=== PATIENT | female | born 1970 | race Caucasian/White ===

== ENCOUNTER → 2021-01-30 | Outpatient (CLI) | payer BC ==
[~2021-01-30] MED LIST: CALCAVITD PO; CEPH500; CITA20 PO; CYCL10 PO; DULO60 PO; EFFEXOR; ESOM20; ESOM20 PO; HYDACE10B PO; HYDACE25S PR; HYDACE5 PO; HYDCOR2.5A PR; LEVOXYL; LEVSOD100; LEVSOD100 PO; META800 PO; NAPR500 PO; NAPR550 PO; Norco 5-325 Ta1 EACH PO; PRAHYD1AE TOP; Percocet 5-3251 EACH PO; TRAM50 PO; VENL75; VITAMINS
[2021-01-30 12:23] LABS: BASOPHILS ABSOLUTE AUTO 0.02 K/mm3 (0.00-0.23); BASOPHILS PERCENT AUTO 0 % (0-2); EOSINOPHILS ABSOLUTE AUTO 0.05 K/mm3 (0.00-0.68); EOSINOPHILS PERCENT AUTO 1 % (0-6); Hematocrit 33.9 % (33.0-51.0); Hemoglobin 11.7 g/dL (11.5-16.0); IMMATURE GRAN ABSOLUTE AUTO 0.03 K/mm3 (0.00-0.10); IMMATURE GRAN PERCENT AUTO 0 % (0-1); LYMPHOCYTES ABSOLUTE AUTO 1.44 K/mm3 (0.84-5.20); LYMPHOCYTES PERCENT AUTO 16 % (21-46); MONOCYTES ABSOLUTE AUTO 1.06 K/mm3 (0.16-1.47); MONOCYTES PERCENT AUTO 12 % (4-13); Mean Corpuscular HGB 33.2 pg (26.0-34.0); Mean Corpuscular HGB Conc 34.5 g/dL (31.5-36.5); Mean Corpuscular Volume 96 fL (80-100); Mean Platelet Volume 10.6 fL (9.1-12.4); NEUTROPHILS ABSOLUTE AUTO 6.45 K/mm3 (1.96-9.15); NEUTROPHILS PERCENT AUTO 71 % (41-73); Platelet Count 149 K/mm3 (150-400); RDW Coefficient Variation 16.1 % (11.7-14.2); RDW Standard Deviation 56.4 fL (35.1-46.3); Red Blood Cell Count 3.52 M/mm3 (3.80-5.20); White Blood Cell Count 9.05 K/mm3 (4.00-11.30)
[2021-01-30 12:31] LABS: Alanine Aminotransfer (ALT/SGP 45 U/L (12-78); Albumin, Blood 2.4 g/dL (3.4-5.0); Albumin/Globulin Ratio 0.5 (0.8-1.8); Alk Phos 168 U/L (40-126); Anion Gap 5 mmol/L (6-16); Aspartate Aminotrans (AST/SGOT 132 U/L (12-37); Blood Urea Nitrogen 4 mg/dL (8-24); Bun/Creatinine Ratio 6.8 (12.0-20.0); CO2, Blood 34 mmol/L (21-32); Calcium, Blood 8.2 mg/dL (8.5-10.1); Chloride, Blood 97 mmol/L (98-108); Creatinine, Blood 0.59 mg/dL (0.40-1.00); Globulin, Blood 4.4 g/dL (2.2-4.0); Glomerular Filtration Rate >60 (60-); Glucose, Blood 95 mg/dL (70-99); Sodium, Blood 136 mmol/L (136-145); Total Protein, Blood 6.8 g/dL (6.4-8.2)
[2021-01-30 12:35] LABS: Potassium, Blood 2.4 mmol/L (3.5-5.5)
== END | disposition home or self-care (01) ==
LOC: LAB SHORT 12:14
PROVIDERS: Physician Assistant
DX: R10.9 Unspecified abdominal pain (principal); R34 Anuria and oliguria
CPT/HCPCS: 80053; 83690; 85025; 87077; 87086; 87186

== ENCOUNTER → 2021-02-07 | Outpatient (CLI) | payer BC ==
[2021-02-09 12:05] LABS: Microalbumin, Urine Quant. <5.000 mg/L (0.000-20.000)
== END ==
LOC: LAB 07:00 → LAB SHORT 07:00
PROVIDERS: Internal Medicine Nephrology
DX: N18.2 Chronic kidney disease, stage 2 (mild) (principal); D63.1 Anemia in chronic kidney disease; N25.81 Secondary hyperparathyroidism of renal origin; E55.9 Vitamin D deficiency, unspecified; E78.00 Pure hypercholesterolemia, unspecified; R76.9 Abnormal immunological finding in serum, unspecified; R94.5 Abnormal results of liver function studies; R94.6 Abnormal results of thyroid function studies; D51.8 Other vitamin B12 deficiency anemias; D52.8 Other folate deficiency anemias; D50.9 Iron deficiency anemia, unspecified
CPT/HCPCS: 81050; 82043; 82570; 84156

== ENCOUNTER → 2021-02-10 | Outpatient (CLI) | payer BC ==
[2021-02-10 10:40] LABS: BASOPHILS ABSOLUTE AUTO 0.04 K/mm3 (0.00-0.23); BASOPHILS PERCENT AUTO 0 % (0-2); EOSINOPHILS PERCENT AUTO 1 % (0-6); Hematocrit 33.6 % (33.0-51.0); Hemoglobin 11.5 g/dL (11.5-16.0); IMMATURE GRAN ABSOLUTE AUTO 0.05 K/mm3 (0.00-0.10); IMMATURE GRAN PERCENT AUTO 0 % (0-1); LYMPHOCYTES ABSOLUTE AUTO 1.37 K/mm3 (0.84-5.20); LYMPHOCYTES PERCENT AUTO 12 % (21-46); MONOCYTES PERCENT AUTO 9 % (4-13); Mean Corpuscular HGB 33.6 pg (26.0-34.0); Mean Corpuscular HGB Conc 34.2 g/dL (31.5-36.5); Mean Corpuscular Volume 98 fL (80-100); Mean Platelet Volume 10.3 fL (9.1-12.4); NEUTROPHILS ABSOLUTE AUTO 9.08 K/mm3 (1.96-9.15); NEUTROPHILS PERCENT AUTO 77 % (41-73); Platelet Count 151 K/mm3 (150-400); RDW Coefficient Variation 17.1 % (11.7-14.2); Red Blood Cell Count 3.42 M/mm3 (3.80-5.20); White Blood Cell Count 11.74 K/mm3 (4.00-11.30)
[2021-02-10 11:13] LABS: Alanine Aminotransfer (ALT/SGP 46 U/L (12-78); Albumin/Globulin Ratio 0.4 (0.8-1.8); Alk Phos 169 U/L (50-136); Anion Gap 5 mmol/L (6-16); Aspartate Aminotrans (AST/SGOT 169 U/L (12-37); Bilirubin, Direct 1.2 mg/dL (0.0-0.3); Bilirubin, Indirect 0.7 mg/dL (0.1-0.7); Bilirubin, Total 1.9 mg/dL (0.1-1.0); Blood Urea Nitrogen 2 mg/dL (8-24); Bun/Creatinine Ratio 4.9 (12.0-20.0); CO2, Blood 32 mmol/L (21-32); Calcium, Blood 8.2 mg/dL (8.5-10.1); Chloride, Blood 100 mmol/L (98-108); Creatinine, Blood 0.41 mg/dL (0.40-1.00); Globulin, Blood 4.5 g/dL (2.2-4.0); Glomerular Filtration Rate >60 (60-); Glucose, Blood 82 mg/dL (70-99); Magnesium, Blood 1.5 mg/dL (1.6-2.4); Phosphorus, Blood 2.3 mg/dL (2.5-4.9); Potassium, Blood 2.8 mmol/L (3.5-5.5); Sodium, Blood 137 mmol/L (136-145); Total Protein, Blood 6.5 g/dL (6.4-8.2)
[2021-02-11 08:11] LABS: HCV ANTIBODY 0.1 (0.0-0.9); HEP B SURFACE AB Non Reactive (.)
== END ==
LOC: LAB SHORT 10:02 → LAB FUT 02-04 09:15
PROVIDERS: Internal Medicine Nephrology
DX: E11.22 Type 2 diabetes mellitus with diabetic chronic kidney disease (principal); E11.21 Type 2 diabetes mellitus with diabetic nephropathy; N18.2 Chronic kidney disease, stage 2 (mild); D63.1 Anemia in chronic kidney disease; N25.81 Secondary hyperparathyroidism of renal origin; E55.9 Vitamin D deficiency, unspecified; R76.9 Abnormal immunological finding in serum, unspecified; R94.5 Abnormal results of liver function studies; G60.9 Hereditary and idiopathic neuropathy, unspecified
CPT/HCPCS: 36415; 80053; 82248; 83735; 84100; 85025; 86803

== ENCOUNTER 2021-05-08 23:36 | Observation (INO) | payer BC ==
[~2021-05-08] VITALS: Ht 157.5 cm; Wt 80.7 kg
[2021-05-09 00:31] LABS: BASOPHILS ABSOLUTE AUTO 0.03 K/mm3 (0.00-0.23); BASOPHILS PERCENT AUTO 0 % (0-2); EOSINOPHILS ABSOLUTE AUTO 0.08 K/mm3 (0.00-0.68); EOSINOPHILS PERCENT AUTO 1 % (0-6); Hemoglobin 9.2 g/dL (11.5-16.0); IMMATURE GRAN ABSOLUTE AUTO 0.04 K/mm3 (0.00-0.10); IMMATURE GRAN PERCENT AUTO 1 % (0-1); LYMPHOCYTES ABSOLUTE AUTO 0.72 K/mm3 (0.84-5.20); LYMPHOCYTES PERCENT AUTO 9 % (21-46); MONOCYTES ABSOLUTE AUTO 0.98 K/mm3 (0.16-1.47); MONOCYTES PERCENT AUTO 13 % (4-13); Mean Corpuscular HGB 31.7 pg (26.0-34.0); Mean Corpuscular HGB Conc 34.1 g/dL (31.5-36.5); Mean Corpuscular Volume 93 fL (80-100); Mean Platelet Volume 9.3 fL (9.1-12.4); NEUTROPHILS ABSOLUTE AUTO 5.91 K/mm3 (1.96-9.15); NEUTROPHILS PERCENT AUTO 76 % (41-73); Platelet Count 148 K/mm3 (150-400); RDW Coefficient Variation 20.1 % (11.7-14.2); RDW Standard Deviation 65.3 fL (35.1-46.3); White Blood Cell Count 7.76 K/mm3 (4.00-11.30)
[2021-05-09 00:48] LABS: Alanine Aminotransfer (ALT/SGP 39 U/L (12-78); Albumin, Blood 2.2 g/dL (3.4-5.0); Albumin/Globulin Ratio 0.5 (0.8-1.8); Alk Phos 125 U/L (50-136); Anion Gap 5 mmol/L (6-16); Aspartate Aminotrans (AST/SGOT 79 U/L (12-37); Bilirubin, Direct 1.2 mg/dL (0.0-0.3); Bilirubin, Total 2.6 mg/dL (0.1-1.0); Blood Urea Nitrogen 2 mg/dL (8-24); Bun/Creatinine Ratio 3.3 (12.0-20.0); CO2, Blood 22 mmol/L (21-32); Calcium, Blood 8.5 mg/dL (8.5-10.1); Chloride, Blood 125 mmol/L (98-108); Creatinine, Blood 0.61 mg/dL (0.40-1.00); Globulin, Blood 4.6 g/dL (2.2-4.0); Glomerular Filtration Rate >60 (60-); Glucose, Blood 124 mg/dL (70-99); Potassium, Blood 3.7 mmol/L (3.5-5.5); Sodium, Blood 152 mmol/L (136-145); Total Protein, Blood 6.8 g/dL (6.4-8.2)
[2021-05-09 01:02] LABS: C DIFFICILE DNA NEGATIVE (Negative)
[2021-05-09] MEDS ORDERED: FUROSEMIDE20 MG PO (05:12)
--- NOTE | 2021-05-09 06:29 | NUR ---
SHIFT SUMMARY RECIEVED REPORT FROM TIFFANIE ALVAREZ, ED. ARRIVED TO MEDICAL UNIT VIA LIUDMILACHRISTIE @ 0411. 1P ASSIST TO TRANSFER. NON-STEADY GAIT NOTED. BED ALARM APPLIED. ORIENTED TO ROOM AND CALL SYSTEM. A/O X 2-3, ABLE TO MAKE NEEDS KNOWN. NOTED TO BE TREMULOUS; STATES NOT USUALLY THIS BAD. COOPERATIVE WITH CARE. NO C/O PAIN/DISCOMFORT. STATES VERY THIRSTY; WATER GIVEN. ALBUMIN RECIEVED. IV FLUIDS INFUSING WITHOUT COMPLICATION. STATES TIRED. NO ACUTE CHANGES NOTED SINCE ARRIVAL. BED IN LOWEST POSITION. CALL LIGHT AND BELONGINGS WITHIN REACH. REPORT TO TINO ALVAREZ.
[2021-05-09] MEDS ORDERED: POTA10T PO (09:24)
[2021-05-09] MEDS ORDERED: METO5A PO (09:26)
[2021-05-09] MEDS ORDERED: Aldactone25 MG PO (09:28)
[2021-05-09] MEDS ORDERED: AZIT250 PO (09:29)
[2021-05-09] MEDS ORDERED: AMOCLA875 PO (09:33)
[2021-05-09] MEDS ORDERED: ESCI10 PO (09:36)
[2021-05-09 12:54] LABS: BASOPHILS ABSOLUTE AUTO 0.01 K/mm3 (0.00-0.23); BASOPHILS PERCENT AUTO 0 % (0-2); EOSINOPHILS PERCENT AUTO 0 % (0-6); Hematocrit 26.1 % (33.0-51.0); Hemoglobin 8.8 g/dL (11.5-16.0); IMMATURE GRAN ABSOLUTE AUTO 0.07 K/mm3 (0.00-0.10); IMMATURE GRAN PERCENT AUTO 1 % (0-1); LYMPHOCYTES ABSOLUTE AUTO 0.55 K/mm3 (0.84-5.20); LYMPHOCYTES PERCENT AUTO 5 % (21-46); MONOCYTES ABSOLUTE AUTO 1.63 K/mm3 (0.16-1.47); MONOCYTES PERCENT AUTO 15 % (4-13); Mean Corpuscular HGB 32.7 pg (26.0-34.0); Mean Corpuscular HGB Conc 33.7 g/dL (31.5-36.5); Mean Corpuscular Volume 97 fL (80-100); NEUTROPHILS ABSOLUTE AUTO 8.91 K/mm3 (1.96-9.15); NEUTROPHILS PERCENT AUTO 80 % (41-73); Platelet Count 153 K/mm3 (150-400); RDW Coefficient Variation 21.7 % (11.7-14.2); RDW Standard Deviation 73.8 fL (35.1-46.3); Red Blood Cell Count 2.69 M/mm3 (3.80-5.20); White Blood Cell Count 11.17 K/mm3 (4.00-11.30)
[2021-05-09 13:14] LABS: Anion Gap 8 mmol/L (6-16); Blood Urea Nitrogen 3 mg/dL (8-24); Bun/Creatinine Ratio 5.8 (12.0-20.0); CO2, Blood 18 mmol/L (21-32); Calcium, Blood 8.4 mg/dL (8.5-10.1); Chloride, Blood 112 mmol/L (98-108); Creatinine, Blood 0.52 mg/dL (0.40-1.00); Glomerular Filtration Rate >60 (60-); Glucose, Blood 144 mg/dL (70-99); Potassium, Blood 4.6 mmol/L (3.5-5.5)
[2021-05-09 13:16] LABS: Sodium, Blood 138 mmol/L (136-145)
== END 2021-05-09 14:20 | disposition home or self-care (01) ==
LOC: ER 23:36 → MEDS 05-09 02:35
PROVIDERS: Emergency Medicine; Family Medicine; Internal Medicine; ADMIT Internal Medicine
DX: E86.0 Dehydration (principal); E87.0 Hyperosmolality and hypernatremia; R42 Dizziness and giddiness; R19.7 Diarrhea, unspecified; K76.89 Other specified diseases of liver; I10 Essential (primary) hypertension; E11.9 Type 2 diabetes mellitus without complications; E03.9 Hypothyroidism, unspecified; F17.210 Nicotine dependence, cigarettes, uncomplicated; Z98.84 Bariatric surgery status
CPT/HCPCS: 36415; 74177; 80048; 80053; 82140; 82248; 83690; 84146; 85025; 87493; 93005; 93010; A9270; G0480; J1650; J7030; J7120; P9046; Q9967

== ENCOUNTER 2021-05-27 18:35 | Emergency (ER) | payer BC ==
[~2021-05-27] VITALS: Ht 157.5 cm; Wt 77.9 kg
[~2021-05-27 18:35] MED LIST changes: +AMOCLA875 PO; +AZIT250 PO; +Aldactone25 MG PO; +ESCI10 PO; +FUROSEMIDE20 MG PO; +METO5A PO; +POTA10T PO
[2021-05-27 19:02] LABS: BASOPHILS ABSOLUTE AUTO 0.02 K/mm3 (0.00-0.23); BASOPHILS PERCENT AUTO 0 % (0-2); EOSINOPHILS ABSOLUTE AUTO 0.12 K/mm3 (0.00-0.68); EOSINOPHILS PERCENT AUTO 2 % (0-6); Hematocrit 23.6 % (33.0-51.0); Hemoglobin 8.6 g/dL (11.5-16.0); IMMATURE GRAN ABSOLUTE AUTO 0.03 K/mm3 (0.00-0.10); IMMATURE GRAN PERCENT AUTO 0 % (0-1); LYMPHOCYTES ABSOLUTE AUTO 1.22 K/mm3 (0.84-5.20); LYMPHOCYTES PERCENT AUTO 16 % (21-46); MONOCYTES ABSOLUTE AUTO 0.82 K/mm3 (0.16-1.47); MONOCYTES PERCENT AUTO 11 % (4-13); Mean Corpuscular HGB 31.5 pg (26.0-34.0); Mean Corpuscular HGB Conc 36.4 g/dL (31.5-36.5); Mean Corpuscular Volume 86 fL (80-100); Mean Platelet Volume 9.7 fL (9.1-12.4); NEUTROPHILS ABSOLUTE AUTO 5.45 K/mm3 (1.96-9.15); NEUTROPHILS PERCENT AUTO 71 % (41-73); Platelet Count 147 K/mm3 (150-400); RDW Coefficient Variation 15.9 % (11.7-14.2); RDW Standard Deviation 50.4 fL (35.1-46.3); Red Blood Cell Count 2.73 M/mm3 (3.80-5.20); White Blood Cell Count 7.66 K/mm3 (4.00-11.30)
[2021-05-27 19:24] LABS: Alanine Aminotransfer (ALT/SGP 43 U/L (12-78); Albumin, Blood 2.4 g/dL (3.4-5.0); Albumin/Globulin Ratio 0.5 (0.8-1.8); Alk Phos 118 U/L (50-136); Anion Gap 8 mmol/L (6-16); Aspartate Aminotrans (AST/SGOT 80 U/L (12-37); Blood Urea Nitrogen 5 mg/dL (8-24); Bun/Creatinine Ratio 8.6 (12.0-20.0); CO2, Blood 27 mmol/L (21-32); Calcium, Blood 8.2 mg/dL (8.5-10.1); Chloride, Blood 92 mmol/L (98-108); Creatinine, Blood 0.58 mg/dL (0.40-1.00); Globulin, Blood 4.4 g/dL (2.2-4.0); Glomerular Filtration Rate >60 (60-); Glucose, Blood 100 mg/dL (70-99); Potassium, Blood 3.8 mmol/L (3.5-5.5); Sodium, Blood 127 mmol/L (136-145); Total Protein, Blood 6.8 g/dL (6.4-8.2)
[2021-05-27] MEDS ORDERED: CONSTULOSE10 GM/15 M PO (20:56)
[2021-05-27] MEDS ORDERED: ONDA4ODT MM (20:56)
== END 2021-05-27 21:38 | disposition home or self-care (01) ==
LOC: ER 18:35
PROVIDERS: Physician Assistant
DX: K74.60 Unspecified cirrhosis of liver (principal); D64.9 Anemia, unspecified; E72.20 Disorder of urea cycle metabolism, unspecified; E03.9 Hypothyroidism, unspecified; E11.9 Type 2 diabetes mellitus without complications; Z79.899 Other long term (current) drug therapy
CPT/HCPCS: 36415; 80053; 82140; 83690; 85025; 93005; 93010; 96374; 96376; 99283-25; A9270; J2405

== ENCOUNTER 2021-06-01 01:22 | Inpatient (IN) | payer BC ==
[~2021-06-01] VITALS: Ht 165.1 cm; Wt 78.3 kg
[~2021-06-01 01:22] MED LIST changes: -Aldactone25 MG PO; +CONSTULOSE10 GM/15 M PO; +DULO30 PO; -DULO60 PO; +FURO40 PO; -FUROSEMIDE20 MG PO; +ONDA4ODT MM; +SPIR50 PO
[2021-06-01 02:12] LABS: Alanine Aminotransfer (ALT/SGP 41 U/L (12-78); Albumin, Blood 2.5 g/dL (3.4-5.0); Albumin/Globulin Ratio 0.6 (0.8-1.8); Alk Phos 110 U/L (50-136); Anion Gap 7 mmol/L (6-16); Aspartate Aminotrans (AST/SGOT 77 U/L (12-37); Bilirubin, Total 2.8 mg/dL (0.1-1.0); Blood Urea Nitrogen 7 mg/dL (8-24); Bun/Creatinine Ratio 8.7 (12.0-20.0); CO2, Blood 28 mmol/L (21-32); Calcium, Blood 8.8 mg/dL (8.5-10.1); Chloride, Blood 92 mmol/L (98-108); Creatinine, Blood 0.81 mg/dL (0.40-1.00); Ethanol (Alcohol), Blood, Med <3 mg/dL; Globulin, Blood 4.3 g/dL (2.2-4.0); Glomerular Filtration Rate >60 (60-); Glucose, Blood 97 mg/dL (70-99); Potassium, Blood 4.4 mmol/L (3.5-5.5); Sodium, Blood 127 mmol/L (136-145); Total Protein, Blood 6.8 g/dL (6.4-8.2)
[2021-06-01 02:16] LABS: BASOPHILS ABSOLUTE AUTO 0.01 K/mm3 (0.00-0.23); BASOPHILS PERCENT AUTO 0 % (0-2); EOSINOPHILS ABSOLUTE AUTO 0.14 K/mm3 (0.00-0.68); EOSINOPHILS PERCENT AUTO 2 % (0-6); Hematocrit 22.2 % (33.0-51.0); Hemoglobin 7.6 g/dL (11.5-16.0); IMMATURE GRAN ABSOLUTE AUTO 0.07 K/mm3 (0.00-0.10); IMMATURE GRAN PERCENT AUTO 1 % (0-1); LYMPHOCYTES ABSOLUTE AUTO 1.22 K/mm3 (0.84-5.20); LYMPHOCYTES PERCENT AUTO 13 % (21-46); MONOCYTES ABSOLUTE AUTO 1.27 K/mm3 (0.16-1.47); MONOCYTES PERCENT AUTO 13 % (4-13); Mean Corpuscular HGB 30.6 pg (26.0-34.0); Mean Corpuscular HGB Conc 34.2 g/dL (31.5-36.5); Mean Corpuscular Volume 90 fL (80-100); Mean Platelet Volume 9.7 fL (9.1-12.4); NEUTROPHILS ABSOLUTE AUTO 6.75 K/mm3 (1.96-9.15); NEUTROPHILS PERCENT AUTO 71 % (41-73); Platelet Count 176 K/mm3 (150-400); RDW Coefficient Variation 16.2 % (11.7-14.2); RDW Standard Deviation 52.5 fL (35.1-46.3); Red Blood Cell Count 2.48 M/mm3 (3.80-5.20); White Blood Cell Count 9.46 K/mm3 (4.00-11.30)
[2021-06-01 03:22] LABS: International Normalized Ratio 1.42; Prothrombin Time Results 14.6 Sec (9.7-11.5)
[2021-06-01 05:15] LABS: Source, Urine Clean Catch
[2021-06-01 05:39] LABS: Bilirubin, Urine Neg (Neg); Blood, Urine Neg (Neg); Glucose Qualitative, Urine Neg (Neg); Ketones, Urine 1+ (Neg); Leukocyte Esterase, Urine 1+ (Neg); Nitrite, Urine Neg (Neg); Protein, Urine 1+ (Neg); Specific Gravity, Urine 1.025 (1.003-1.022); Urobilinogen, Urine 1+ (Normal)
[2021-06-01 05:53] LABS: U Amphetamine Screen Not Detected; U Barbituate Screen Not Detected; U Benzodiazapine Screen Not Detected; U Buprenorphine Screen Not Detected; U Cannabinoids Screen Not Detected; U Cocaine Screen Not Detected; U Methadone Screen Not Detected; U Methamphetamine Screen Not Detected; U Opiates Screen Not Detected; U Oxycodone Screen Not Detected; U Phencyclidine Screen Not Detected; U Propoxyphene Screen Not Detected
[2021-06-01 05:55] LABS: Amorphous Light (0-Heavy); Appearance, Urine Hazy (Clear); Bacteria Few /hpf; Color, Urine Yellow (P-Yellow); Red Blood Cells, Urine Not Seen /hpf (0-2); Squamous Epithelial Cells Few /hpf (Few)
[2021-06-01] MEDS ORDERED: HYDHCL25 PO ×2 (06:25)
[2021-06-01 09:48] LABS: Hematocrit 20.6 % (33.0-51.0); Hemoglobin 7.6 g/dL (11.5-16.0)
[2021-06-01 10:16] LABS: Anion Gap 9 mmol/L (6-16); Blood Urea Nitrogen 5 mg/dL (8-24); Bun/Creatinine Ratio 7.2 (12.0-20.0); CO2, Blood 24 mmol/L (21-32); Calcium, Blood 8.3 mg/dL (8.5-10.1); Chloride, Blood 95 mmol/L (98-108); Creatinine, Blood 0.69 mg/dL (0.40-1.00); Glomerular Filtration Rate >60 (60-); Glucose, Blood 84 mg/dL (70-99); Sodium, Blood 128 mmol/L (136-145)
--- NOTE | 2021-06-01 15:36 | NUR ---
SHIFT SUMMARY 0700 RECEIVED PT TO RM 304 VIA LIUDMILARTOMMY FROM ER. RECEIVED REPORT FROM JERALD ALVAREZ. PT ADMITTED FOR HEPATIC ENCEPHALOPATHY. HX OF ETOH ABUSE, CIRRHOSIS, AND NONCOMPLIANCE WITH HOME MEDICATIONS. PT CONFUSED AND AGITATED, BUT IMPROVING FROM ADMISSION. 1P SBA TO BTHRM NEEDED. PT IS CONTINENT OF BOWEL AND BLADDER. GI CONSULT CALLED TO DR HATHAWAY'S OFFICE. IV SANDOSTATIN AND IV PROTONIX INFUSING PER EMAR. PT NONCOMPLIANT WITH KEEPING IV PATENT. NEW IV PLACED BY BUD ALVAREZ. PO LACTULOSE GIVEN PER EMAR. PT PRESENTLY UP TO SHOWER WITH ASSIST BY SUPERANNUATION FUNDS MANAGER. TOLERATING CL DIET WELL. DENIES FURTHER NEEDS AT THIS TIME. CALL LT IN REACH.
[2021-06-01 17:08] LABS: Hematocrit 23.2 % (33.0-51.0); Hemoglobin 8.1 g/dL (11.5-16.0)
--- NOTE | 2021-06-01 21:38 | NUR ---
DR HATHAWAY TO ROOM FOR CONSULT
[2021-06-02 05:04] LABS: BASOPHILS ABSOLUTE AUTO 0.03 K/mm3 (0.00-0.23); BASOPHILS PERCENT AUTO 0 % (0-2); EOSINOPHILS PERCENT AUTO 6 % (0-6); Hematocrit 21.3 % (33.0-51.0); Hemoglobin 7.7 g/dL (11.5-16.0); IMMATURE GRAN ABSOLUTE AUTO 0.04 K/mm3 (0.00-0.10); IMMATURE GRAN PERCENT AUTO 1 % (0-1); LYMPHOCYTES ABSOLUTE AUTO 1.31 K/mm3 (0.84-5.20); LYMPHOCYTES PERCENT AUTO 19 % (21-46); MONOCYTES ABSOLUTE AUTO 1.03 K/mm3 (0.16-1.47); MONOCYTES PERCENT AUTO 15 % (4-13); Mean Corpuscular HGB 32.1 pg (26.0-34.0); Mean Corpuscular HGB Conc 36.2 g/dL (31.5-36.5); Mean Corpuscular Volume 89 fL (80-100); Mean Platelet Volume 9.5 fL (9.1-12.4); NEUTROPHILS ABSOLUTE AUTO 4.27 K/mm3 (1.96-9.15); NEUTROPHILS PERCENT AUTO 60 % (41-73); Platelet Count 166 K/mm3 (150-400); RDW Coefficient Variation 15.9 % (11.7-14.2); White Blood Cell Count 7.08 K/mm3 (4.00-11.30)
--- NOTE | 2021-06-02 05:17 | NUR ---
LEAD JAVASCRIPT DEVELOPER SUMMARY ADMITTED FOR HEPATIC ENCEPHALOPATHY. SHE IS A DNR. PT TO HAVE EGD DONE LATER TODAY PER CONSULT WITH DR. HATHAWAY. PT CURRENTLY ON PROTONIX AND SANDOSTATIN INFUSION. SHE HAS BEEN INDEPENDENT TO THE RESTROOM WITH IV POLE. PT IS ALERT AND ORIENTED X3. SHE HAS SCATTERED BRUISING FROM HISTORY OF LIVER FAILURE AND FALLS AT HOME. SHE HAS BEEN PLEASANT AND COOPERATIVE WITH CARE.
[2021-06-02 05:30] LABS: Anion Gap 9 mmol/L (6-16); Blood Urea Nitrogen 5 mg/dL (8-24); Bun/Creatinine Ratio 6.8 (12.0-20.0); CO2, Blood 23 mmol/L (21-32); Calcium, Blood 8.1 mg/dL (8.5-10.1); Chloride, Blood 94 mmol/L (98-108); Creatinine, Blood 0.74 mg/dL (0.40-1.00); Glomerular Filtration Rate >60 (60-); Glucose, Blood 138 mg/dL (70-99); Potassium, Blood 3.2 mmol/L (3.5-5.5); Sodium, Blood 126 mmol/L (136-145)
[2021-06-02 06:40] LABS: Influenza A, PCR NEGATIVE (NEGATIVE); Influenza B, PCR NEGATIVE (NEGATIVE); Resp Syncytial Virus, PCR NEGATIVE (NEGATIVE); SARS-Cov-2 (COVID-19) PCR, MMC NEGATIVE (NEGATIVE)
--- NOTE | 2021-06-02 15:11 | NUR ---
06/02/21 1511 MEERA MODI History, Chart, Medications and Allergies reviewed before start of procedure. 3-LEAD EKG REVIEWED WITH PHYSICIAN PRIOR TO START OF PROCEDURE. MONITOR INTACT WITH CONTINUOUS PULSE OXIMETRY AND INTERMITTENT BP. O2 VIA POM. GENERAL WITH DR. KEENAN.
--- NOTE | 2021-06-02 17:39 | NUR ---
SHIFT SUMMARY PT RESTING QUIETLY AT START OF SHIFT. NPO EXCEPT WATER AND ICE FOR SCOPE TODAY. IV PROTONIX AND IV SANDOSTATIN INFUSING PER EMAR. NEW ORDER FOR IV KCL ON EMAR; ATTEMPTED TO INFUSE KCL CONCURRENTLY WITH PROTONIX AT REDUCED RATE PER PT. PT STARTED SCREAMING; IV KCL STOPPED AND IV FLUSHED. PT WANTING PROTONIX AND SANDOSTATIN STOPPED, THOUGH IN DIFFERENT IV SITES. WHEN CALLING DR LOBO WITH UPDATE ON PT, PT PULLED IV SITE OUT, REFUSING TO LEAVE IT IN, EVEN THOUGH KCL HAD BEEN STOPPED AND IV FLUSHED. PT HAS HAD DIFFICULTY BEING COMPLIANT WITH CARE PRIOR TO ADMISSION WELL WHILE HERE. NEW ORDERS PER DR LOBO TO STOP SANDOSTATIN AT THAT TIME AND GIVE PO KCL AFTER PROCEDURE THIS AFTERNOON. PT TAKEN DOWN FOR UPPER ENDO AND WAS FOUND TO HAVE FOOD IN THE STOMACH. PROCEDURE WAS IMMEDIATELY STOPPED AND PT WILL BE RESCHEDULED FOR TOMORROW. CL DIET ORDERED FOR TONIGHT AND THEN PT TO BE NPO AGAIN AT 0100 TONIGHT. IN RM AT BS; UNDATE GIVEN ON PROCEDURE AND PLAN OF CARE. NEW MEDS ORDERED AND GIVEN PER EMAR; SEE CHART. PT C/O PAIN "EVERYWHERE" AND DR LOBO NOTIFIED AGAIN. NEW ORDERS PLACED. PT RESTING QUIETLY AT THIS TIME. CALL LT IN REACH. AT BS.
--- NOTE | 2021-06-03 04:00 | NUR ---
DRY WALL NAILER SUMMARY PATIENT HAD A FAIR SHIFT. SHE IS ALERT AND ORIENTED. HAD A WALK AROUND THE FLOOR. HER V/S ARE CHECKED AND RECORDED. NO COMPLAINTS OVERNIGHT, JUST TIRED OF LYING DOWN SHE STATED.
[2021-06-03 05:00] LABS: Hematocrit 24.6 % (33.0-51.0); Hemoglobin 8.6 g/dL (11.5-16.0); Mean Corpuscular HGB 31.7 pg (26.0-34.0); Mean Corpuscular Volume 91 fL (80-100); Mean Platelet Volume 9.3 fL (9.1-12.4); Platelet Count 165 K/mm3 (150-400); RDW Coefficient Variation 16.3 % (11.7-14.2); RDW Standard Deviation 52.6 fL (35.1-46.3); Red Blood Cell Count 2.71 M/mm3 (3.80-5.20); White Blood Cell Count 8.13 K/mm3 (4.00-11.30)
[2021-06-03 05:31] LABS: Anion Gap 8 mmol/L (6-16); Blood Urea Nitrogen 4 mg/dL (8-24); Bun/Creatinine Ratio 5.5 (12.0-20.0); CO2, Blood 25 mmol/L (21-32); Calcium, Blood 8.3 mg/dL (8.5-10.1); Chloride, Blood 96 mmol/L (98-108); Creatinine, Blood 0.72 mg/dL (0.40-1.00); Glomerular Filtration Rate >60 (60-); Glucose, Blood 115 mg/dL (70-99); Potassium, Blood 3.4 mmol/L (3.5-5.5); Sodium, Blood 129 mmol/L (136-145)
[2021-06-03 07:11] LABS: HEP B CORE AB, TOT Negative (Negative)
--- NOTE | 2021-06-03 10:29 | NUR ---
Pt. is in bed resting. Spouse is present and welcomes my visit. Pt. is a woman of mya, but spouse has no rel. pref. Establish rapport. Spouse welcomes a pastoral blessing on behalf of the Pt. [place] over Pt. Spouse displays evidence of catharsis. Spouse verbalized gratitudew for the spiritual care visit.
--- NOTE | 2021-06-03 14:30 | NUR ---
06/03/21 1430 Wesly Jasso See Anesthesia record DR SNELL. Bite Block Placed. Patient to ENDO 1. History, Chart, Medications and Allergies reviewed before start of procedure. MONITOR INTACT WITH CONTINUOUS PULSE OXIMETRY AND INTERMITTENT BP. O2 VIA N/C INTACT THROUGHOUT SEDATION/PROCEDURE.
[2021-06-03 16:48] LABS: Free Thyroxine 1.6 ng/dL (0.70-1.60)
[2021-06-03 16:49] LABS: Triiodothyronine, Free 0.51 pg/mL (2.18-3.98)
--- NOTE | 2021-06-03 20:08 | NUR ---
END OF SHIFT SUMMARY: PATIENT DROWSY AT THE BEGINNING OF THE SHIFT, BUT ABLE TO WAKE UP ENOUGH TO TAKE HER MEDICATIONS AND SAFELY TRANSFER TO THE BATHROOM WITH THE WALKER. PATIENT WAS ORIENTED X4, BUT IMPUSLIVE (FOR EXAMPLE: PULLED HER IV SHE THOUGHT THAT IT WAS "YESTERDAY'S IV). THE DAY PROGRESSED, SHE BECAME MORE FATIGUED AND DROWSY. VITALS STAYED STABLE AND PATIENT AWOKE WITH VOICE. ORIENTATION DECREASED. AFTER PAIENT RETURNED FROM EGD, PATIENT WAS VERY SLEEPY RELATED TO PROCEDURE. ONCE THE MEDICATION CLEARED, PATIENT WAS ALERT AND CLEAR-HEADED. SHE WAS ABLE TO SPEAK WITH FAMILY AND STAFF WITHOUT FALLING ASLEEP DURING THE CONVERSATION. FAMILY IS CONCERNED THAT THE PATIENT IS NOT AT HER BASELINE MENTATION. DISCUSSED CONCERNS WITH DR. LOBO. NEW ORDERS ENTERED AND DR. OLBO WAS ABLE TO SPEAK WITH THE FAMILY ABOUT THE PLAN OF CARE. DR. PARKER IN ROOM TO DISCUSS EGD RESULTS AND DISCHARGE NEEDS.
--- NOTE | 2021-06-04 02:17 | NUR ---
SPREAD CUTTER SUMMARY PATIENT HAD A FAIR SHIFT. SHE WAS DROWSY FOR THE MOST PART OF THE SHIFT, BUT ALSO SHE HAD A WAS VOMITING WHEN SHE WOKE UP, SHE WAS AGREEABLE TO ZOFRAN AND ORDER WAS GOTTEN AND SAME ADMINISTERED SEE CHART. SHE ALSO WAS IN PAIN AND I GOT AN ORDER FOR PAIN MED, BUT LOOKING AT HER BP AND THE FACE THAT SHE WAS DROWSY , INFACT SLEEPING IT WAS NOT ADMINISTERED. SHE LATER WOKE AND REQUESTED FOR PEPTOBISMUTH, ORDER WAS GOTTEN AND WAS ADMINISTERED TO HER. SHE WENT RIGHT BACK TO SLEEP. WILL CONTINUE TO MONITOR HER.
[2021-06-04 05:27] LABS: Hematocrit 21.9 % (33.0-51.0); Hemoglobin 7.7 g/dL (11.5-16.0); Mean Corpuscular HGB 31.4 pg (26.0-34.0); Mean Corpuscular HGB Conc 35.2 g/dL (31.5-36.5); Mean Corpuscular Volume 89 fL (80-100); Mean Platelet Volume 9.5 fL (9.1-12.4); Platelet Count 157 K/mm3 (150-400); RDW Coefficient Variation 16.3 % (11.7-14.2); RDW Standard Deviation 52.7 fL (35.1-46.3); Red Blood Cell Count 2.45 M/mm3 (3.80-5.20); White Blood Cell Count 7.47 K/mm3 (4.00-11.30)
[2021-06-04 05:46] LABS: Anion Gap 6 mmol/L (6-16); Blood Urea Nitrogen 4 mg/dL (8-24); Bun/Creatinine Ratio 5.2 (12.0-20.0); CO2, Blood 27 mmol/L (21-32); Calcium, Blood 8.6 mg/dL (8.5-10.1); Chloride, Blood 99 mmol/L (98-108); Creatinine, Blood 0.77 mg/dL (0.40-1.00); Glomerular Filtration Rate >60 (60-); Glucose, Blood 132 mg/dL (70-99); Potassium, Blood 3.4 mmol/L (3.5-5.5); Sodium, Blood 132 mmol/L (136-145)
[2021-06-04] MEDS ORDERED: Enulose10 GM/15 M PO (12:43)
[2021-06-04] MEDS ORDERED: CIPR500 PO (12:44)
[2021-06-04] MEDS ORDERED: LIOT5 PO (12:45)
[2021-06-04] MEDS ORDERED: LEVOTHYROXINE PO (12:45)
[2021-06-04] MEDS ORDERED: OMEP20ER PO (12:46)
[2021-06-04] MEDS ORDERED: VISBIOME 112.51 EACH PO (12:47)
--- NOTE | 2021-06-04 14:46 | NUR ---
DISCHARGE NOTE. THE PATIENT WAS DISCHARGED THIS SHIFT AT 1400. THE PATIENT LEFT VIA WHEELCHAIR THIS SHIFT WITH SPOUSE. THE PATIENT AND SPOUSE WERE GIVEN DISCHARGE INSTRUCTIONS. THEY DECLINED FOR THIS NURSE TO GO OVER THE MEDICATIONS WITH THEM SINCE THE PHARMACIST HAD JUST DONE THAT WITH THEM. THE FRONT WHEEL WALKER WILL BE DELIIVERED TO THE PATIENT'S HOME AND HOME HEALTH WILL FOLLOW UP WITH THE PATIENT. NOTHING FURTHER TO REPORT.
[2021-06-07 13:07] LABS: ACTIN (SMOOTH MUSCLE) ANTIBODY 6 Units (0-19)
== END 2021-06-04 14:02 | disposition home or self-care (01) | DRG 442 ==
LOC: ER 01:22 → MEDS 05:36 → ER 07:17 → MEDS 07:26
PROVIDERS: Internal Medicine; Internal Medicine Gastroenterology; Student in an Organized Health Care Education/Training Program; ADMIT Family Medicine
PROC: 0DJ08ZZ Inspection of Upper Intestinal Tract, Via Natural or Artificial Opening Endoscopic (ICD-10-PCS; 2021-06-02)
PROC: 0DJ08ZZ Inspection of Upper Intestinal Tract, Via Natural or Artificial Opening Endoscopic (ICD-10-PCS; principal; 2021-06-02 14:45)
DX: K72.90 Hepatic failure, unspecified without coma (principal); K92.1 Melena; D68.8 Other specified coagulation defects; E87.1 Hypo-osmolality and hyponatremia; Z20.822 Contact with and (suspected) exposure to COVID-19; Z66 Do not resuscitate; E87.6 Hypokalemia; K70.31 Alcoholic cirrhosis of liver with ascites; E03.9 Hypothyroidism, unspecified; I10 Essential (primary) hypertension; D64.9 Anemia, unspecified; E11.9 Type 2 diabetes mellitus without complications; Z86.16 Personal history of COVID-19; M81.0 Age-related osteoporosis without current pathological fracture; K21.9 Gastro-esophageal reflux disease without esophagitis; F17.210 Nicotine dependence, cigarettes, uncomplicated; Z98.84 Bariatric surgery status; Z90.49 Acquired absence of other specified parts of digestive tract; Z28.21 Immunization not carried out because of patient refusal; Z91.14 Patient's other noncompliance with medication regimen; Z98.51 Tubal ligation status; Z90.89 Acquired absence of other organs; Z98.890 Other specified postprocedural states; Z79.899 Other long term (current) drug therapy
CPT/HCPCS: 0241U; 36415; 51701; 70450; 71045; 74177; 80048; 80053; 81001; 82103; 82104; 82105; 82140; 84439; 84443; 84481; 85014; 85018; 85025; 85027; 85610; 86015; 86381; 86704; 86708; 86850; 86900; 86901; 87086; 93005; 93010; 96365; 96368; 96374; 96375; 96376; 97116; 97162; 99285-25; A9270; C9113; G0378; G0480; J0696; J1885; J2354; J2370; J2405; J2704; J2765; J3010; J3480; J7030; J7050; Q9967

== ENCOUNTER 2021-06-05 20:31 | Inpatient (IN) | payer BC ==
[~2021-06-05] VITALS: Ht 157.5 cm; Wt 77.0 kg
[~2021-06-05 20:31] MED LIST changes: +CIPR500 PO; +Enulose10 GM/15 M PO; +HYDHCL25 PO; +LEVOTHYROXINE PO; +LIOT5 PO; +OMEP20ER PO; +VISBIOME 112.51 EACH PO
[2021-06-05 22:11] LABS: BASOPHILS ABSOLUTE AUTO 0.02 K/mm3 (0.00-0.23); BASOPHILS PERCENT AUTO 0 % (0-2); EOSINOPHILS ABSOLUTE AUTO 0.17 K/mm3 (0.00-0.68); EOSINOPHILS PERCENT AUTO 2 % (0-6); Hematocrit 23.7 % (33.0-51.0); Hemoglobin 8.4 g/dL (11.5-16.0); IMMATURE GRAN ABSOLUTE AUTO 0.05 K/mm3 (0.00-0.10); IMMATURE GRAN PERCENT AUTO 1 % (0-1); LYMPHOCYTES ABSOLUTE AUTO 1.41 K/mm3 (0.84-5.20); LYMPHOCYTES PERCENT AUTO 17 % (21-46); MONOCYTES ABSOLUTE AUTO 1.01 K/mm3 (0.16-1.47); MONOCYTES PERCENT AUTO 12 % (4-13); Mean Corpuscular HGB 31.2 pg (26.0-34.0); Mean Corpuscular HGB Conc 35.4 g/dL (31.5-36.5); Mean Corpuscular Volume 88 fL (80-100); Mean Platelet Volume 9.2 fL (9.1-12.4); NEUTROPHILS ABSOLUTE AUTO 5.71 K/mm3 (1.96-9.15); NEUTROPHILS PERCENT AUTO 68 % (41-73); Platelet Count 160 K/mm3 (150-400); RDW Coefficient Variation 16.8 % (11.7-14.2); RDW Standard Deviation 52.9 fL (35.1-46.3); Red Blood Cell Count 2.69 M/mm3 (3.80-5.20); White Blood Cell Count 8.37 K/mm3 (4.00-11.30)
[2021-06-05 22:29] LABS: Alanine Aminotransfer (ALT/SGP 44 U/L (12-78); Albumin, Blood 2.5 g/dL (3.4-5.0); Albumin/Globulin Ratio 0.6 (0.8-1.8); Alk Phos 107 U/L (50-136); Anion Gap 8 mmol/L (6-16); Aspartate Aminotrans (AST/SGOT 90 U/L (12-37); Bilirubin, Total 2.2 mg/dL (0.1-1.0); Blood Urea Nitrogen 5 mg/dL (8-24); Bun/Creatinine Ratio 5.8 (12.0-20.0); CO2, Blood 25 mmol/L (21-32); Calcium, Blood 8.3 mg/dL (8.5-10.1); Chloride, Blood 98 mmol/L (98-108); Creatinine, Blood 0.86 mg/dL (0.40-1.00); Globulin, Blood 4.2 g/dL (2.2-4.0); Glomerular Filtration Rate >60 (60-); Glucose, Blood 97 mg/dL (70-99); Potassium, Blood 3.3 mmol/L (3.5-5.5); Sodium, Blood 131 mmol/L (136-145); Total Protein, Blood 6.7 g/dL (6.4-8.2)
[2021-06-05 23:35] LABS: Source, Urine Clean Catch
[2021-06-05 23:37] LABS: Magnesium, Blood 1.6 mg/dL (1.6-2.4)
[2021-06-05 23:40] LABS: Blood, Urine Neg (Neg); Glucose Qualitative, Urine Neg (Neg); Ketones, Urine 1+ (Neg); Leukocyte Esterase, Urine 1+ (Neg); Nitrite, Urine Neg (Neg); Protein, Urine 2+ (Neg); Specific Gravity, Urine 1.025 (1.003-1.022); Urobilinogen, Urine 1+ (Normal)
[2021-06-05 23:44] LABS: Appearance, Urine Hazy (Clear); Bilirubin, Urine 1+ (Neg); Color, Urine Amber (P-Yellow)
[2021-06-05 23:46] LABS: Amorphous Light (0-Heavy); Bacteria Many /hpf; Hyaline Casts 25-50 /lpf (0-2); Mucus Light (0-Heavy); Red Blood Cells, Urine Not Seen /hpf (0-2); Squamous Epithelial Cells Mod /hpf (Few)
[2021-06-06 05:52] LABS: BASOPHILS ABSOLUTE AUTO 0.02 K/mm3 (0.00-0.23); BASOPHILS PERCENT AUTO 0 % (0-2); EOSINOPHILS ABSOLUTE AUTO 0.08 K/mm3 (0.00-0.68); EOSINOPHILS PERCENT AUTO 1 % (0-6); Hematocrit 23.1 % (33.0-51.0); Hemoglobin 8.1 g/dL (11.5-16.0); IMMATURE GRAN ABSOLUTE AUTO 0.07 K/mm3 (0.00-0.10); IMMATURE GRAN PERCENT AUTO 1 % (0-1); LYMPHOCYTES PERCENT AUTO 10 % (21-46); MONOCYTES ABSOLUTE AUTO 0.73 K/mm3 (0.16-1.47); MONOCYTES PERCENT AUTO 9 % (4-13); Mean Corpuscular HGB 31.6 pg (26.0-34.0); Mean Corpuscular HGB Conc 35.1 g/dL (31.5-36.5); Mean Corpuscular Volume 90 fL (80-100); Mean Platelet Volume 9.6 fL (9.1-12.4); NEUTROPHILS ABSOLUTE AUTO 6.23 K/mm3 (1.96-9.15); NEUTROPHILS PERCENT AUTO 79 % (41-73); Platelet Count 164 K/mm3 (150-400); RDW Coefficient Variation 16.6 % (11.7-14.2); RDW Standard Deviation 54.4 fL (35.1-46.3); Red Blood Cell Count 2.56 M/mm3 (3.80-5.20); White Blood Cell Count 7.93 K/mm3 (4.00-11.30)
[2021-06-06 06:01] LABS: International Normalized Ratio 1.44; Prothrombin Time Results 14.8 Sec (9.7-11.5)
[2021-06-06 06:17] LABS: Alanine Aminotransfer (ALT/SGP 43 U/L (12-78); Albumin, Blood 2.3 g/dL (3.4-5.0); Albumin/Globulin Ratio 0.6 (0.8-1.8); Alk Phos 104 U/L (50-136); Anion Gap 10 mmol/L (6-16); Aspartate Aminotrans (AST/SGOT 94 U/L (12-37); Bilirubin, Total 1.9 mg/dL (0.1-1.0); Blood Urea Nitrogen 6 mg/dL (8-24); Bun/Creatinine Ratio 6.8 (12.0-20.0); CO2, Blood 24 mmol/L (21-32); Calcium, Blood 8.4 mg/dL (8.5-10.1); Chloride, Blood 98 mmol/L (98-108); Creatinine, Blood 0.89 mg/dL (0.40-1.00); Globulin, Blood 4.1 g/dL (2.2-4.0); Glomerular Filtration Rate >60 (60-); Glucose, Blood 111 mg/dL (70-99); Potassium, Blood 3.2 mmol/L (3.5-5.5); Sodium, Blood 132 mmol/L (136-145); Total Protein, Blood 6.4 g/dL (6.4-8.2)
--- NOTE | 2021-06-06 07:04 | NUR ---
PT CAME IN FROM THE ED DUE TO AMS AND INCREASED CONFUSION FROM PRIOR ADMIT ON 06/04. PT HAS BEEN EXPRESSING HER FEELINGS OF WANTING TO LEAVE ALL NIGHT. PT HAS BEEN STANDING AT THE BACK OF THE HALLWAY ALL MORNING TRYING TO GET TO THE EMERGENCY EXIT, PT REFUSING TO GO BACK INTO HER ROOM. . CHARGE NURSE MADE AWARE AND ARE FIGURING OUT ACCOMIDATION FOR PT.
[2021-06-06 11:33] LABS: U Amphetamine Screen Not Detected; U Barbituate Screen Not Detected; U Benzodiazapine Screen Not Detected; U Buprenorphine Screen Not Detected; U Cannabinoids Screen Not Detected; U Cocaine Screen Not Detected; U Methadone Screen Not Detected; U Methamphetamine Screen Not Detected; U Opiates Screen Not Detected; U Oxycodone Screen Not Detected; U Phencyclidine Screen Not Detected; U Propoxyphene Screen Not Detected
--- NOTE | 2021-06-06 18:19 | NUR ---
PT ALERT AND ABLE TO TELL ME HER NAME AND BIRTHDAY. OCCASIONALLY TALKS BUT MOSTLY NODS YES OR NO. PT KEPT GETTING OUT OF BED AND TRYING TO EXIT THE UNIT. PT IS UNSTEADY AND NOT ABLE TO BE REDIRECTED. PT PLACED IN ZABRINA VEST FOR SAFETY. TO STAY OVERNIGHT TO HELP WATCH PATIENT. CALL LIGHT PLACED WITHIN REACH. BED IN LOWEST POSITION AND BED ALARM ON.
[2021-06-07 04:57] LABS: Alanine Aminotransfer (ALT/SGP 40 U/L (12-78); Albumin, Blood 2.3 g/dL (3.4-5.0); Albumin/Globulin Ratio 0.6 (0.8-1.8); Alk Phos 99 U/L (50-136); Anion Gap 7 mmol/L (6-16); Aspartate Aminotrans (AST/SGOT 88 U/L (12-37); Blood Urea Nitrogen 6 mg/dL (8-24); Bun/Creatinine Ratio 7.6 (12.0-20.0); CO2, Blood 25 mmol/L (21-32); Calcium, Blood 8.5 mg/dL (8.5-10.1); Chloride, Blood 101 mmol/L (98-108); Creatinine, Blood 0.79 mg/dL (0.40-1.00); Globulin, Blood 4.1 g/dL (2.2-4.0); Glomerular Filtration Rate >60 (60-); Glucose, Blood 99 mg/dL (70-99); Magnesium, Blood 2.1 mg/dL (1.6-2.4); Potassium, Blood 3.3 mmol/L (3.5-5.5); Sodium, Blood 133 mmol/L (136-145); Total Protein, Blood 6.4 g/dL (6.4-8.2)
--- NOTE | 2021-06-07 06:00 | NUR ---
PT HAS BEEN AWAKE ALL NIGHT. PT IS ALERT AND ORIENTED X 2-3, PT IS COOPERATIVE AND IS TALKING MORE TONIGHT THAN YESTERDAY. PT DOES CONTINUE TO TRY TO GET OUT OF BED SO A ZABRINA VEST WAS PLACED. PT WAS STILL ATTEMPTING TO GET OUT OF BED AND PULL AT THE ZABRINA SO BILAT SOFT LEG RESTRAINTS PLACED. PT WAS ABLE TO GET UP AND UNSTRAP LEG RESTRAINTS SO SOFT WRIST RESTRAINTS PLACED. PT DID WELL FOR A COUPLE 0F HOURS THEN BECAME MORE IRRATABLE AND STARTED PULLING AT THE ZABRINA VEST AT TIMES BEING SUCCESSFUL AT REMOVING IT. SENIOR PRODUCT DEVELOPMENT SCIENTIST IS KEEPING AN EYE ON HER SHE IS CONSTANTLY TRYING TO REMOVE THE RESTRAINTS EVERY TIME STAFF WALKS OUT OF THE ROOM. OTHERWISE PT IS STABLE AND VITAL HAVE BEEN STABLE, PT DOES NOT C/O SOB, PAIN, OR N/V AT THIS TIME.
--- NOTE | 2021-06-07 13:26 | NUR ---
DC'D THE RESTRAINTS THIS AM. PT MORE ALERT AND AWAKE AND ABLE TO FOLLOW DIRECTION AND HOLD CONVERSATION. PT WAS ABLE TO TALK TO DOCTOR THIS AM. PT STATED SHE FEELS MUCH BETTER TODAY. AND BESTFRIEND IN THE ROOM. DOCTOR TALKED TO ON THE PHONE.
--- NOTE | 2021-06-07 17:14 | NUR ---
SHIFT SUMMARY PT AOX3, ALERT TODAY. PT FOLLOW COMMANDS. PT POSSIBLE DC TOMORROW PER EDUCATED THE PT AND ABOUT THE RESTRAINT PLACED FROM LAST NIGHT. PT DENIES PAIN. BED IS IN THE LOWEST POSITION AND CALL LIGHT WITHIN REACH.
--- NOTE | 2021-06-08 05:21 | NUR ---
PT IS AWAKE THIS MORNING. PT ORIENTATION HAS REMARKABLY IMPROVED SINCE LAST NIGHT, PT IS ALERT AND ORIENTED X4 AND ABLE TO MAKE CONVERSATION. [facility] THAT IF SHE CONTIUES TO REMAIN CALM AND IN HER ROOM THEN SHE CAN GO HOME TODAY. HAD A TALK WITH THE PT ABOUT THE IMPORTANCE OF REMAINING CONSISTENT IN HER RECOVERY FROM ALCOHOL, PT SEEMED VERY DETERMINED. OTHERWISE NO CHANGES TONIGHT. NO C/O SOB, N/V, OR PAIN.
[2021-06-08 05:33] LABS: BASOPHILS ABSOLUTE AUTO 0.02 K/mm3 (0.00-0.23); BASOPHILS PERCENT AUTO 0 % (0-2); EOSINOPHILS ABSOLUTE AUTO 0.27 K/mm3 (0.00-0.68); EOSINOPHILS PERCENT AUTO 3 % (0-6); Hematocrit 20.6 % (33.0-51.0); Hemoglobin 7.3 g/dL (11.5-16.0); IMMATURE GRAN ABSOLUTE AUTO 0.04 K/mm3 (0.00-0.10); IMMATURE GRAN PERCENT AUTO 1 % (0-1); LYMPHOCYTES PERCENT AUTO 19 % (21-46); MONOCYTES ABSOLUTE AUTO 1.01 K/mm3 (0.16-1.47); MONOCYTES PERCENT AUTO 13 % (4-13); Mean Corpuscular HGB 31.7 pg (26.0-34.0); Mean Corpuscular HGB Conc 35.4 g/dL (31.5-36.5); Mean Corpuscular Volume 90 fL (80-100); Mean Platelet Volume 9.8 fL (9.1-12.4); NEUTROPHILS ABSOLUTE AUTO 5.07 K/mm3 (1.96-9.15); NEUTROPHILS PERCENT AUTO 64 % (41-73); Platelet Count 124 K/mm3 (150-400); RDW Coefficient Variation 16.6 % (11.7-14.2); RDW Standard Deviation 53.8 fL (35.1-46.3); White Blood Cell Count 7.91 K/mm3 (4.00-11.30)
[2021-06-08 05:59] LABS: Alanine Aminotransfer (ALT/SGP 42 U/L (12-78); Albumin, Blood 2.2 g/dL (3.4-5.0); Albumin/Globulin Ratio 0.6 (0.8-1.8); Alk Phos 92 U/L (50-136); Anion Gap 8 mmol/L (6-16); Aspartate Aminotrans (AST/SGOT 83 U/L (12-37); Bilirubin, Total 2.1 mg/dL (0.1-1.0); Blood Urea Nitrogen 5 mg/dL (8-24); Bun/Creatinine Ratio 6.3 (12.0-20.0); CO2, Blood 23 mmol/L (21-32); Calcium, Blood 8.4 mg/dL (8.5-10.1); Chloride, Blood 100 mmol/L (98-108); Creatinine, Blood 0.79 mg/dL (0.40-1.00); Globulin, Blood 3.7 g/dL (2.2-4.0); Glomerular Filtration Rate >60 (60-); Glucose, Blood 80 mg/dL (70-99); Potassium, Blood 3.5 mmol/L (3.5-5.5); Sodium, Blood 131 mmol/L (136-145); Total Protein, Blood 5.9 g/dL (6.4-8.2)
[2021-06-08] MEDS ORDERED: POTA10T PO ×2 (12:11)
[2021-06-08] MEDS ORDERED: B-1100 MG PO ×2 (12:12)
--- NOTE | 2021-06-08 13:09 | NUR ---
DISCHARGE NOTE THE PATIENT WAS DISCHARGED TODAY AT 1300 VIA WHEELCHAIR WITH SPOUSE. THE PATIENT WAS GIVEN DISCHARGE INSTRUCTIONS AND VERBALIZED UNDERSTANDING ALONG WITH SPOUSE.
[2021-06-10 13:09] LABS: MMA - NORMALIZED 0.2 (0.5-3.4)
== END 2021-06-08 12:54 | disposition home or self-care (01) | DRG 441 ==
LOC: ER 20:31 → MEDS 06-06 03:48
PROVIDERS: Internal Medicine; Student in an Organized Health Care Education/Training Program; ADMIT Internal Medicine
DX: K72.90 Hepatic failure, unspecified without coma (principal); G93.41 Metabolic encephalopathy; N39.0 Urinary tract infection, site not specified; E72.20 Disorder of urea cycle metabolism, unspecified; E87.1 Hypo-osmolality and hyponatremia; Z28.21 Immunization not carried out because of patient refusal; Z78.1 Physical restraint status; Z91.14 Patient's other noncompliance with medication regimen; E03.9 Hypothyroidism, unspecified; E11.9 Type 2 diabetes mellitus without complications; F17.210 Nicotine dependence, cigarettes, uncomplicated; F10.10 Alcohol abuse, uncomplicated; E87.6 Hypokalemia; E86.0 Dehydration; E53.8 Deficiency of other specified B group vitamins; F31.9 Bipolar disorder, unspecified; D53.9 Nutritional anemia, unspecified; K70.31 Alcoholic cirrhosis of liver with ascites; I10 Essential (primary) hypertension; M81.0 Age-related osteoporosis without current pathological fracture; Z98.84 Bariatric surgery status; Z79.890 Hormone replacement therapy; Z90.49 Acquired absence of other specified parts of digestive tract; Z98.51 Tubal ligation status; Z98.890 Other specified postprocedural states; Z79.2 Long term (current) use of antibiotics; Z79.899 Other long term (current) drug therapy
CPT/HCPCS: 36415; 71045; 80053; 81001; 82140; 82607; 82746; 83036; 83735; 83880; 83921; 85025; 85610; 87086; 92610; 93005; 93010; 96365; 96367; 96375; 99285-25; A9270; J0456; J0696; J1650; J3411; J3475; J7030; J7050; P9046

== ENCOUNTER 2021-07-09 14:02 | Emergency (ER) | payer BC ==
[~2021-07-09] VITALS: Ht 160 cm; Wt 72.6 kg
[~2021-07-09 14:02] MED LIST changes: +B-1100 MG PO
[2021-07-09 15:37] LABS: Albumin, Blood 2.4 g/dL (3.4-5.0); Albumin/Globulin Ratio 0.5 (0.8-1.8); BASOPHILS ABSOLUTE AUTO 0.02 K/mm3 (0.00-0.23); BASOPHILS PERCENT AUTO 0 % (0-2); Bilirubin, Total 2.3 mg/dL (0.1-1.0); Calcium, Blood 8.8 mg/dL (8.5-10.1); Creatinine, Blood 1.34 mg/dL (0.40-1.00); EOSINOPHILS ABSOLUTE AUTO 0.06 K/mm3 (0.00-0.68); EOSINOPHILS PERCENT AUTO 1 % (0-6); Globulin, Blood 4.5 g/dL (2.2-4.0); Hematocrit 21.4 % (33.0-51.0); Hemoglobin 7.7 g/dL (11.5-16.0); IMMATURE GRAN ABSOLUTE AUTO 0.07 K/mm3 (0.00-0.10); IMMATURE GRAN PERCENT AUTO 1 % (0-1); LYMPHOCYTES ABSOLUTE AUTO 0.81 K/mm3 (0.84-5.20); LYMPHOCYTES PERCENT AUTO 8 % (21-46); MONOCYTES ABSOLUTE AUTO 0.83 K/mm3 (0.16-1.47); MONOCYTES PERCENT AUTO 8 % (4-13); Magnesium, Blood 2.1 mg/dL (1.6-2.4); Mean Corpuscular HGB 30.8 pg (26.0-34.0); Mean Corpuscular Volume 86 fL (80-100); NEUTROPHILS ABSOLUTE AUTO 9.05 K/mm3 (1.96-9.15); NEUTROPHILS PERCENT AUTO 83 % (41-73); Phosphorus, Blood 3.2 mg/dL (2.5-4.9); Platelet Count 135 K/mm3 (150-400); Potassium, Blood 3.4 mmol/L (3.5-5.5); RDW Standard Deviation 51.7 fL (35.1-46.3); Total Protein, Blood 6.9 g/dL (6.4-8.2); White Blood Cell Count 10.84 K/mm3 (4.00-11.30)
[2021-07-09] MEDS ORDERED: NEURONTIN300 MG PO (15:45)
[2021-07-09 16:11] LABS: Source, Urine Clean Catch
[2021-07-09 16:26] LABS: Appearance, Urine Hazy (Clear); Bilirubin, Urine Neg (Neg); Blood, Urine Neg (Neg); Color, Urine Yellow (P-Yellow); Glucose Qualitative, Urine Neg (Neg); Ketones, Urine Neg (Neg); Leukocyte Esterase, Urine Neg (Neg); Nitrite, Urine Neg (Neg); Protein, Urine 1+ (Neg); Specific Gravity, Urine 1.015 (1.003-1.022); Urobilinogen, Urine NORM (Normal)
[2021-07-09 17:01] LABS: Bacteria Mod /hpf; Red Blood Cells, Urine Not Seen /hpf (0-2); Squamous Epithelial Cells Rare /hpf (Few); White Blood Cells, Urine Rare /hpf (0-5)
== END 2021-07-09 18:30 | disposition home or self-care (01) ==
LOC: ER 14:02
PROVIDERS: Physician Assistant
DX: K74.60 Unspecified cirrhosis of liver (principal); R41.0 Disorientation, unspecified; E87.1 Hypo-osmolality and hyponatremia; D64.9 Anemia, unspecified; Z79.899 Other long term (current) drug therapy; E03.9 Hypothyroidism, unspecified; I10 Essential (primary) hypertension; F17.210 Nicotine dependence, cigarettes, uncomplicated
CPT/HCPCS: 36415; 70450; 80053; 81001; 82140; 83735; 84100; 85025; 86850; 86900; 86901; 87086; 93005; 93010; 96374; 96375; 99284-25; A9270; J1940; J2405; J3480; P9612

== ENCOUNTER 2021-07-24 00:07 | Day surgery (SDC) | payer BC ==
[~2021-07-24 00:07] MED LIST changes: +NEURONTIN300 MG PO
[2021-07-24] MEDS ORDERED: TRAZODONE HYDROCHLOR PO (11:04)
[2021-07-24] MEDS ORDERED: OMEP20ER PO (11:05)
[2021-07-24] MEDS ORDERED: TUMS500 MG (11:07)
[2021-07-24] MEDS ORDERED: C COMPLEX1000 M1 PO (11:07)
[2021-07-24] MEDS ORDERED: ERGO400 PO (11:08)
[2021-07-24] MEDS ORDERED: ESCI10 PO (11:08)
[2021-07-24] MEDS ORDERED: COENZYME Q10100 MG PO (11:08)
[2021-07-24] MEDS ORDERED: MULVITA PO (11:09)
[2021-07-24] MEDS ORDERED: HYDHCL25 PO (11:09)
[2021-07-24] MEDS ORDERED: NYAMYC15 G1 TOP (11:10)
--- NOTE | 2021-07-24 14:00 | NUR ---
Blood consent form explained to pt and spouse, pt signed blood consent.
--- NOTE | 2021-07-24 15:00 | NUR ---
PT AND SPOUSE HAVE QUESTIONS ABOUT HOSPICE. ANSWERED QUESTIONS FROM BOTH PT AND HER . 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). ENCOURAGED PT AND HER MOSHE TO CALL THE HR DEPARTMENT ON TUESDAY TO SEE WHAT BENEFITS SHE STILL HAS. EDUARDO STATES SHE ISN'T SURE SHE IS READY FOR HOSPICE YET BECAUSE SHE STATES THAT THEY NEED HER INCOME. PROVIDED HOSPICE BROCHURES AND HARD CHOICES BOOKLET FROM THE PALLIATIVE CARE DEPARTMENT. ALSO PROVIDED A POLST FORM PER THEIR REQUEST WHICH THEY WILL TAKE TO PT'S NEXT PCP APPOINTMENT. THEY STATE THEY WILL PLAN TO FOLLOW UP WITH HR AND PCP TO DETERMINE A PLAN OF CARE GOING FORWARD.
== END 2021-07-24 17:45 | disposition home or self-care (01) ==
LOC: ATC 00:07
DX: K70.31 Alcoholic cirrhosis of liver with ascites (principal); K76.6 Portal hypertension; K31.89 Other diseases of stomach and duodenum
CPT/HCPCS: 86850; 86900; 86901; 86923; J7040; P9016

== ENCOUNTER 2021-07-31 00:50 | Day surgery (SDC) | payer BC ==
[2021-07-30 13:33] LABS: BASOPHILS PERCENT AUTO 0 % (0-2); EOSINOPHILS ABSOLUTE AUTO 0.27 K/mm3 (0.00-0.68); EOSINOPHILS PERCENT AUTO 2 % (0-6); Hematocrit 22.1 % (33.0-51.0); Hemoglobin 7.9 g/dL (11.5-16.0); IMMATURE GRAN ABSOLUTE AUTO 0.05 K/mm3 (0.00-0.10); IMMATURE GRAN PERCENT AUTO 0 % (0-1); LYMPHOCYTES ABSOLUTE AUTO 0.73 K/mm3 (0.84-5.20); LYMPHOCYTES PERCENT AUTO 6 % (21-46); MONOCYTES ABSOLUTE AUTO 0.61 K/mm3 (0.16-1.47); MONOCYTES PERCENT AUTO 5 % (4-13); Mean Corpuscular HGB 30.6 pg (26.0-34.0); Mean Corpuscular HGB Conc 35.7 g/dL (31.5-36.5); Mean Corpuscular Volume 86 fL (80-100); Mean Platelet Volume 10.5 fL (9.1-12.4); NEUTROPHILS ABSOLUTE AUTO 11.53 K/mm3 (1.96-9.15); NEUTROPHILS PERCENT AUTO 88 % (41-73); NRBC ABSOLUTE 0.02 K/mm3 (0.00-0.02); NRBC Auto 0.2 /100 WBC (0.0-0.2); Platelet Count 118 K/mm3 (150-400); RDW Coefficient Variation 17.5 % (11.7-14.2); RDW Standard Deviation 53.2 fL (35.1-46.3); Red Blood Cell Count 2.58 M/mm3 (3.80-5.20); White Blood Cell Count 13.19 K/mm3 (4.00-11.30)
[2021-07-30 15:37] LABS: Bun/Creatinine Ratio 9.6 (12.0-20.0); Calcium, Blood 8.4 mg/dL (8.5-10.1); Creatinine, Blood 3.44 mg/dL (0.40-1.00)
[~2021-07-31 00:50] MED LIST changes: +C COMPLEX1000 M1 PO; +COENZYME Q10100 MG PO; +ERGO400 PO; +MULVITA PO; +NYAMYC15 G1 TOP; +TRAZODONE HYDROCHLOR PO; +TUMS500 MG
--- NOTE | 2021-07-31 14:31 | NUR ---
PT VERY LETHARGIC, COUGHING UP BROWN SPUTUM OCCASIONALLY
--- NOTE | 2021-07-31 15:24 | NUR ---
STATES THAT PT HAS BEEN VERY SLEEPY AND SLEEPING FOR 3 DAYS, PT TALKS SOFTLY, BUT LETHARGIC, LOW BP, BUT STATES THAT IS "NORMAL" FOR HER AT THIS TIME. PT IS POSSIBLY GOING ON HOSPICE IN NEAR FUTURE
--- NOTE | 2021-07-31 17:42 | NUR ---
NORMAL SALINE STOPPED AT 1625
== END 2021-07-31 16:25 | disposition home or self-care (01) ==
LOC: ATC 00:50 → EDSTATUS 13:30 → ATC 16:25
PROVIDERS: Internal Medicine Gastroenterology
DX: K70.31 Alcoholic cirrhosis of liver with ascites (principal); D64.9 Anemia, unspecified; Z98.84 Bariatric surgery status; Z87.891 Personal history of nicotine dependence
CPT/HCPCS: 36415; 80048; 85025; 86850; 86900; 86901; 86923; J7040; P9016